=== PATIENT | male | born 2000 | race Hispanic/Latino ===

== ENCOUNTER 2021-03-16 13:16 | Emergency (ER) | payer SELFPAY ==
[~2021-03-16 13:16] MED LIST: Iopamidol-370 76% 500 ML 1 ML ONE
[2021-03-16] MEDS ORDERED: Acetaminophen 500 MG TAB ONE ×2 (13:33→13:34)
[2021-03-16 13:47] LABS: #Lymphocytes 1.4 thou/uL (1.20-3.40); #Monocytes 0.8 thou/uL (0.11-0.59); #Neutrophils 16.7 thou/uL (1.40-6.50); %Basophils 0.1 % (0.0-1.0); %Eosinophils 0.1 % (0.0-10.0); %Lymphocytes 7.1 % (28.0-48.0); %Monocytes 4.3 % (0.0-4.0); %Neutrophils 88.5 % (31.0-61.0); Hemoglobin 15.6 g/dL (14.0-18.0); Mean Corpuscular HGB CONC 36.3 g/dL (32.0-36.0); Mean Corpuscular Hemoglobin 31.7 pg (25.0-35.0); Mean Corpuscular Volume 87.2 fL (78.0-98.0); Mean Platelet Volume 7.6 fL (7.4-10.4); Platelet Count 297 thou/uL (130-400); RBC Distribution Width 11.2 % (11.5-14.5); Red Blood Cell (RBC) Count 4.92 mill/uL (4.00-5.20); White Blood Cell (WBC) Count 18.9 thou/uL (4.8-10.8)
[2021-03-16 14:08] LABS: ALT (SGPT) 55 U/L (8-55); AST (SGOT) 25 U/L (10-45); Albumin 4.8 g/dL (3.5-5.0); Alkaline Phosphatase 84 U/L (50-130); Anion Gap 17 mmol/L (10-20); BUN (Urea Nitrogen) 8 mg/dL (8.4-21.0); Bilirubin, Total 1.3 mg/dL (0.2-1.2); Calc. Creatinine Clearance 0 mL/min (70-130); Calcium 9.7 mg/dL (7.8-10.44); Carbon Dioxide 22 mmol/L (22-29); Chloride 99 mmol/L (98-107); Globulin 4.2 g/dL (2.4-3.5); Glucose 110 mg/dL (70-105); Potassium 3.6 mmol/L (3.5-5.1); Sodium 134 mmol/L (136-145)
[2021-03-16 14:21] LABS: INR-International Normal Ratio 1.1; PTT 32.5 sec (22.9-36.1); Prothrombin Time 13.7 sec (12.0-14.7)
[2021-03-16 15:40] LABS: Bilirubin Negative (Negative); Blood, Urine Negative (Negative); Clarity Clear (Clear); Glucose, Urine (Dipstick) Normal (Negative); Ketone, Urine Negative (Negative); Leukocyte Negative Leu/uL (Negative); Nitrite Negative (Negative); Protein, Urine (Dipstick) Negative (Neg-Trace); Specific Gravity, Urine 1.018 (1.002-1.036); Urobilinogen Normal mg/dL (Less than 2); pH, Urine 6.5 (5.0-9.0)
[2021-03-16 16:23] LABS: SARS-CoV-2 NAA Rapid Test Not Detected (NotDetected)
[2021-03-16 16:42] LABS: Lactic Acid 0.9 mmol/L (0.5-2.2)
== END 2021-03-16 18:15 | disposition home or self-care (01) ==
LOC: ERS 13:16
DX: I88.0 Nonspecific mesenteric lymphadenitis (principal); K52.9 Noninfective gastroenteritis and colitis, unspecified; Z20.822 Contact with and (suspected) exposure to COVID-19
CPT/HCPCS: 36415; 71045; 74177; 80053; 81003; 83605; 85025; 85610; 85730; 87040; 87086; Q9967; U0002; U0005

== ENCOUNTER 2021-10-10 16:00 | Emergency (ER) | payer BC, SELFPAY | END 2021-10-10 17:09 | disposition home or self-care (01) | LOC: ERS 16:00 | DX: S93.402A Sprain of unspecified ligament of left ankle, initial encounter (principal); X50.9XXA Other and unspecified overexertion or strenuous movements or postures, initial encounter ==